=== PATIENT | female | born 1980 | race Caucasian/White ===

== ENCOUNTER → 2016-08-15 | Outpatient (CLI) | payer BC, OTHER ==
[~2016-08-15] MED LIST: ADIPEX-P37.5 M1 PO; LEVOTHYROXINE25 MCG PO; MELOXICAM15 MG PO; MIRALAX PACK 171 PKT PO; NAPROSYN500 MG PO; NORCO 5-325 TA1 EACH PO; VITAMIN D350000 UNIT PO
[2016-08-15 10:23] LABS: HEMOGLOBIN 13.4 gm/dl (12.3-15.3); RED BLOOD COUNT 4.43 M/UL (4.00-5.10); WHITE BLOOD COUNT 6.7 K/UL (4.5-11.0)
== END ==
LOC: OPSV2 09:00
PROVIDERS: Obstetrics & Gynecology
DX: Z01.812 Encounter for preprocedural laboratory examination (principal); N81.2 Incomplete uterovaginal prolapse
CPT/HCPCS: 36415; 81001; 85025

== ENCOUNTER 2016-08-24 09:55 | Day surgery (SDC) | payer BC ==
[~2016-08-24] VITALS: Ht 175.3 cm; Wt 113.4 kg
[2016-08-24] MEDS ORDERED: LEVOTHYROXINE25 MCG PO (11:13)
[2016-08-24] MEDS ORDERED: ADIPEX-P37.5 M1 PO (11:13)
[2016-08-24] MEDS ORDERED: VITAMIN D350000 UNIT PO (11:15)
[2016-08-24] MEDS ORDERED: MELOXICAM15 MG PO (11:16)
--- NOTE | 2016-08-24 22:52 | NUR ---
PT WOKE UP REQUESTING PAIN MEDICATION FOR MARYBEL PAIN AND BACK PAIN. CRAKCERS PROVIDED ALONG WITH PAIN MED PER MD ORDER. PT ALSO REQUESTED SOMETHING FOR NAUSEA BECAUSE SHE WANTED TO EAT MORE CRACKERS AND WAS WORRIED IT WOULD MAKE HER NAUSEAU. PHENERGAN IV GIVEN PER MD ORDER. ASSISTED PT WITH POSITIONING IN THE BED FOR COMFORT. CALL LOREDO AT SIDE
--- NOTE | 2016-08-25 01:58 | NUR ---
RECEIVED ONCOMING SHIFT CHANGE REPORT AT 00:20 FROM Zainab DIAZ RN. TAKING OVER PT CARE FOR REMAINDER OF OCULAR CARE AIDE. INTO PT'S ROOM AT 00:30, AND PT SLEEPING. DID NOT AWAKEN HER.
--- NOTE | 2016-08-25 04:19 | NUR ---
4:05AM: WALKING DRAGLINE OILER TO ROOM FOR SCHEDULED BLOOD DRAW. PT AWOKE EASILY. DISCUSSED PLAN OF CARE FOR THIS MORNING WITH HER REGARDING REMOVAL OF REGAN AND VAG. PACKING. PT RECEPTIVE; PT RETURNING TO SLEEP.
[2016-08-25 04:33] LABS: HEMOGLOBIN 12.2 gm/dl (12.3-15.3)
--- NOTE | 2016-08-25 21:24 | NUR ---
PT. STABLE AND AMBULATING TO REFRESHMENT ROOM. NO COMPLAINTS VOICED, NO DISTRESS NOTED AT THIS TIME.
--- NOTE | 2016-08-25 22:15 | NUR ---
PT. SITTING IN BED, RESTING. NO NEEDS VOICED, NO DISTRESS NOTED AT THIS TIME.
--- NOTE | 2016-08-25 23:01 | NUR ---
PT. SLEEPING IN BED, NO DISTRESS NOTED AT THIS TIME.
--- NOTE | 2016-08-26 01:41 | NUR ---
PT. IS NOTED TO BE SLEEPING, RESTING WELL IN BED. NO DISTRESS NOTED AT THIS TIME.
--- NOTE | 2016-08-26 03:29 | NUR ---
PT. NOTED TO BE SLEEPING, RESTING WELL IN BED. NO DISTRESS NOTED AT THIS TIME.
--- NOTE | 2016-08-26 05:10 | NUR ---
PT. NOTED TO BE RESTING IN BED, SNACK GIVEN, NO COMPLAINTS OR CONCERNS VOICED, NO DISTRESS NOTED AT THIS TIME.
[2016-08-26] MEDS ORDERED: MIRALAX PACK 171 PKT PO (12:06)
[2016-08-26] MEDS ORDERED: NORCO 5-325 TA1 EACH PO (12:07)
[2016-08-26] MEDS ORDERED: NAPROSYN500 MG PO (12:08)
== END 2016-08-26 12:45 | disposition home or self-care (01) ==
LOC: OR 09:55 → OB 18:06 → OR 18:07 → OB 18:07 → OR 18:07 → OB 18:14 → OR 18:14 → OB 18:15 → OR 18:15 → OB 08-26 12:45 → OR 08-26 12:45
PROVIDERS: Obstetrics & Gynecology
PROC: 0TSD0ZZ Reposition Urethra, Open Approach (ICD-10-PCS; principal; 2016-08-24 14:00)
PROC: 0TU Urinary System, Supplement (ICD-10-PCS; principal; 2016-08-24 14:00)
PROC: 0USG0ZZ Reposition Vagina, Open Approach (ICD-10-PCS; principal; 2016-08-24 14:00)
PROC: 0UT97ZZ Resection of Uterus, Via Natural or Artificial Opening (ICD-10-PCS; principal; 2016-08-24 14:00)
PROC: 0UTC7ZZ Resection of Cervix, Via Natural or Artificial Opening (ICD-10-PCS; principal; 2016-08-24 14:00)
DX: N39.3 Stress incontinence (female) (male) (principal); N81.2 Incomplete uterovaginal prolapse; N94.6 Dysmenorrhea, unspecified; R39.15 Urgency of urination; I10 Essential (primary) hypertension; E78.5 Hyperlipidemia, unspecified; Z82.49 Family history of ischemic heart disease and other diseases of the circulatory system; Z84.89 Family history of other specified conditions
CPT/HCPCS: 36415; 84703; 85014; 85018; C1769; C1771; J0690; J1100; J1885; J2250; J2270; J2405; J2550; J2710; J2765; J2795; J3010; J7120

== ENCOUNTER → 2020-07-16 | Outpatient (CLI) | payer BC ==
[~2020-07-16] MED LIST changes: +ECOTRIN81 MG PO
[2020-07-17 10:14] LABS: HBSAG SCREEN Negative (Negative); HEP A AB, IGM Negative (Negative); HEP B CORE AB, IGM Negative (Negative); HEP C VIRUS AB <0.1 (0.0-0.9)
[2020-07-17 11:14] LABS: RHEUMATOID ARTHRITIS FACTOR <10.0 IU/mL (0.0-13.9)
[2020-07-18 00:20] LABS: CCP ANTIBODIES IGG/IGA 5 units (0-19)
== END ==
LOC: LAB 10:49
PROVIDERS: Nurse Practitioner Family
DX: Z00.00 Encounter for general adult medical examination without abnormal findings (principal); Z87.19 Personal history of other diseases of the digestive system; D89.9 Disorder involving the immune mechanism, unspecified; M25.50 Pain in unspecified joint; R76.8 Other specified abnormal immunological findings in serum
CPT/HCPCS: 36415; 80074; 81001; 82550; 82570; 83520; 84156; 85652; 86140; 86200; 86431